=== PATIENT | female | born 1990 | race African-American/Black ===

== ENCOUNTER 2021-05-25 21:11 | Emergency (ER) | payer MEDICAID, OTHER ==
[~2021-05-25] VITALS: Ht 167.6 cm; Wt 85.9 kg
--- NOTE | 2021-05-25 22:55 | PHYS DOC ---
Past Medical History Past Medical History: No Pertinent History Past Surgical History: No Surgical History Smoking Status: Current Every Day Smoker Alcohol Use: None Drug Use: None General Adult EDM: Chief Complaint: CHEST PAIN HPI: HPI: 30-year-old female who is a current smoker with no past medical history presents the emergency department complaining of left-sided sharp chest pain that is intermittent since night. She reports no palliative or provoking factors. She reports that the breathing makes the pain worse. The patient denies any history of blood clots in his legs or his lungs, no personal history of any cancers or clotting disorders. The patient denies radiation of pain, sweating, shortness of air, nausea, vomiting, palpitations or dizziness. Review of Systems: Review of Systems: ROS otherwise negative for what was mentioned in HPI Heart Score: C/O Chest Pain: Yes HEART Score for Chest Pain: HEART Score for Chest Pain Response (Comments) Value History Slighlty/Non-Suspicious 0 ECG Normal 0 Age < 45 0 Risk Factors No Risk Factors 0 Total 0 Physical Exam: PE: Constitutional: No acute distress, non-toxic appearance. HENT: Atraumatic, bilateral external ears normal, nose normal. Eyes: PERRLA, EOMI, conjunctiva normal, no discharge. Neck: Normal range of motion, supple, no stridor. Cardiovascular: Heart rate regular rhythm. 2+ radial pulses Chest wall: Tenderness along the left parasternal border Lungs & Thorax: No respiratory distress, symmetrical expansion. Abdomen: Soft, no tenderness Skin: Warm, dry. Extremities: No tenderness, no cyanosis, ROM intact, no edema. Neurologic: Alert and oriented X 3, normal motor function, normal sensory fun ction, no focal deficits noted. Non ataxic gait. GCS 15. Psychologic: Affect normal, judgment normal, mood normal. Current Patient Data: Labs: Laboratory Tests Test 05/25/21 21:46 POC Urine HCG, Qualitative Hcg negative (Negative) Vital Signs: Vital Signs Date Time Temp Pulse Resp B/P (MAP) Pulse Ox O2 Delivery O2 Flow Rate FiO2 05/25/21 23:22 60 18 123/83 (96) 97 Room Air 05/25/21 21:33 99.8 60 18 124/57 (79) 99 Room Air 99.8 EKG: EKG: Normal sinus rhythm rate of 56, no ST-T wave changes, no ectopic beats, normal axis, normal ND, QRS, and QTc intervals. Impression: Normal EKG. interpreted by Jayden schneider D.O. Radiology/Procedures: Radiology/Procedures: No airspace disease, infiltrates or consolidations, lung marcelino clear. No pneumothorax or pleural effusion. Cardiac silhouette within normal limits. No widening of mediastinum. No obvious free air seen. Impression: normal CXR. Interpreted by Jayden schneider D.O. Course & Med Decision Making: Course & Med Decision Making Chest x-ray normal, EKG normal, heart score is 0, patient will be discharged with instructions to use ibuprofen for pain, return to the emergency department as needed and follow-up with her primary care for her next week Departure Departure Impression: Primary Impression: Chest pain Disposition: 01 HOME / SELF CARE / HOMELESS Condition: STABLE Patient Instructions: Chest Pain (Nonspecific), [id number] Additional Instructions: You were seen in the emergency department for chest pain. Your exam and testing did not show any acute abnormality that warranted admission today but does not rule out underlying cardiovascular disease. You need to follow up with your primary doctor and/or cardiology for further evaluation. Return to the Emergency Department immediately, day or night, if you have worsening or continued chest pain, shortness of breath, nausea, sweating during chest pain, trouble breathing, chest pain with exertion (climbing stairs or walking for example), leg swelling or for any other concerns. JAYDEN CHI DO May 25, 2021 22:55
[2021-05-25 23:48] VITALS: BP 111/53
[2021-05-26] MEDS ORDERED: KETOROLAC 15 MG/ML VIAL. IM ONE (00:30)
--- NOTE | 2021-05-26 02:58 | EKG ---
[facility] [address] [place] [id number] Test Date: 2021-05-25 Test Time: 21:19:40 Pat Name: DUKE BANDA Department: Room: Gender: F [employer] Work[employer]: : 1990 Requested By: TONY CHI Order Number: [id number] Reading MD: Flako Amador Measurements Intervals [place]ony Rate: 56 P: 54 AL: 172 QRS: 45 QRSD: 80 T: 30 QT: 386 QTc: 375 Interpretive Statements SINUS RHYTHM NORMAL ECG RI6.02 No previous ECG available for comparison Electronically Signed On 05-27-2021 13:14:28 CDT by Flako Amador
--- NOTE | 2021-05-26 04:51 | RAD ---
EXAMINATION: Chest radiograph. VIEWS: Single AP view of the chest COMPARISON: None INDICATION:30 years, Female, chest pain. FINDINGS: Normal cardiomediastinal silhouette. Symmetric bibasilar opacities consistent with soft tissue summat ion. No focal consolidation. No pleural effusion or pneumothorax. No acute osseous process. IMPRESSION: No acute cardiopulmonary process. Electronically signed by: Jeramie Vincent DO (05/26/2021 4:49 AM) [facility]
== END 2021-05-26 00:36 | disposition home or self-care (01) ==
LOC: ER 21:11
DX: R07.89 Other chest pain (principal); F17.200 Nicotine dependence, unspecified, uncomplicated
CPT/HCPCS: 71045; 81025; 93005; 96372; 99285; J1885; 99283